=== PATIENT | female | born 1935 | race Caucasian/White ===

== ENCOUNTER → 2016-12-21 | Outpatient (CLI) | payer MEDICARE, BC, OTHER ==
[~2016-12-21] MED LIST: /ATOR40TA PO; /VERA12TA PO; ADV250INH INH; ALBU83IN HHN; ASPI81CH3 PO; COLA100C3 PO; FISHOIL PO; GABA300C2 PO; HUMA100I SC; INSULANT SC; IRON18TA2 PO; IRON65TA PO; LEVO500T PO; LISI5TAB PO; MEGA RED PO; MULTCAP PO; ONETAB35 PO; PERCOCET PO; PROA1AER IN; TRAM50TA2 PO; VITAMIN D PO; [UNRECOGNIZED DRUG - OTHER] PO
[2016-12-21 14:11] LABS: ALBUMIN 3.8 GM/DL (3.2-5.2); ALBUMIN/GLOBULIN RATIO 1.12 (1.00-1.93); ALKALINE PHOSPHATASE 110 U/L (45-117); ALT/SGPT 29 U/L (12-78); ANION GAP 6 MEQ/L (8-16); AST/SGOT 23 U/L (15-37); BILIRUBIN,TOTAL 0.5 MG/DL (0.2-1.0); BLOOD UREA NITROGEN 13 MG/DL (7-18); CALCIUM LEVEL 9.7 MG/DL (8.8-10.2); CARBON DIOXIDE LEVEL 31 MEQ/L (21-32); CHLORIDE LEVEL 103 MEQ/L (98-107); CHOLESTEROL LEVEL 147 MG/DL (<200); CREATININE FOR GFR 0.73 MG/DL (0.55-1.02); GLOMERULAR FILTRATION RATE > 60.0 (>32); GLUCOSE, FASTING 92 MG/DL (83-110); POTASSIUM SERUM 4.1 MEQ/L (3.5-5.1); SODIUM LEVEL 140 MEQ/L (136-145); TOTAL PROTEIN 7.2 GM/DL (6.4-8.2); TRIGLYCERIDES LEVEL 69 MG/DL (<150)
== END ==
LOC: M WUC 09:40
PROVIDERS: ATTEND Internal Medicine
DX: E78.5 Hyperlipidemia, unspecified (principal); J44.9 Chronic obstructive pulmonary disease, unspecified; I10 Essential (primary) hypertension; E11.9 Type 2 diabetes mellitus without complications

== ENCOUNTER 2018-03-01 17:18 | Observation (INO) | payer MEDICARE, BC, OTHER ==
[2018-03-01 19:12] LABS: BASO % 0.2 % (0.0-1.0); HEMOGLOBIN 12.4 g/dl (12.0-15.5); IMMATURE GRANULOCYTE % 0.4 % (0-3.0); LYMPH # 1.3 10^3/uL (1.5-4.5); LYMPH % 12.8 % (24.0-44.0); MEAN CORPUSCULAR HEMOGLOBIN 31.6 pg (27.0-33.0); MEAN CORPUSCULAR HGB CONC 33.5 g/dl (32.0-36.5); MEAN CORPUSCULAR VOLUME 94.1 fl (80.0-96.0); MONO # 1.1 10^3/uL (0.0-0.8); MONO % 10.5 % (0.0-5.0); NEUTROPHILS # 7.8 10^3/uL (1.8-7.7); NEUTROPHILS % 76.1 % (36.0-66.0); PLATELET COUNT, AUTOMATED 130 10^3/uL (150-450); RED BLOOD COUNT 3.93 10^6/uL (4.00-5.40); RED CELL DISTRIBUTION WIDTH 13.2 % (11.5-14.5); WHITE BLOOD COUNT 10.2 10^3/uL (4.0-10.0)
[2018-03-01 19:23] LABS: PROTHROMBIN TIME 16.4 SECONDS (12.1-14.4)
[2018-03-01 19:42] LABS: ALBUMIN 2.8 GM/DL (3.2-5.2); ALBUMIN/GLOBULIN RATIO 0.62 (1.00-1.93); ALKALINE PHOSPHATASE 91 U/L (45-117); ALT/SGPT 16 U/L (12-78); ANION GAP 10 MEQ/L (8-16); AST/SGOT 14 U/L (7-37); BILIRUBIN,DIRECT 0.2 MG/DL (0.0-0.2); BLOOD UREA NITROGEN 26 MG/DL (7-18); CALCIUM LEVEL 9.1 MG/DL (8.8-10.2); CARBON DIOXIDE LEVEL 28 MEQ/L (21-32); CHLORIDE LEVEL 95 MEQ/L (98-107); CPK CREATINE PHOSPHOKINASE 111 U/L (26-192); CREATININE FOR GFR 0.87 MG/DL (0.55-1.30); GLOMERULAR FILTRATION RATE > 60.0 (>32); GLUCOSE, FASTING 184 MG/DL (70-100); POTASSIUM SERUM 3.7 MEQ/L (3.5-5.1); SODIUM LEVEL 133 MEQ/L (136-145); TOTAL PROTEIN 7.3 GM/DL (6.4-8.2); TROPONIN I 0.16 NG/ML (< 0.10)
[2018-03-01 19:47] LABS: NT-PRO BNP 5936 PG/ML (<450)
[2018-03-01 19:55] LABS: LACTIC ACID SEPSIS PROTOCOL 1.6 MMOL/L (0.4-2.0)
[2018-03-01] MEDS: LevoFLOXacin IV 500 MG in APPROPRIATE DILUENT 1 EA IV (20:14)
[2018-03-01] MEDS: HumaLOG INSULIN (NovoLOG) PER UNIT SC ×2 (21:00)
[2018-03-01 21:04] LABS: CALCIUM OXALATE CRYSTALS RFX SMALL; KETONE, URINE AUTO RFX TRACE mg/dL (NEGATIVE); LEUKOCYTE ESTERASE UR AUTO RFX 2+ (NEGATIVE); MUCUS, URINE RFX SMALL (NEGATIVE); NITRITE, URINE AUTO RFX NEGATIVE (NEGATIVE); RBC, URINE AUTO RFX 9 /HPF (0-3); SPECIFIC GRAVITY UR AUTO RFX 1.013 (1.002-1.035); SQUAM EPITHELIAL CELL UR AURFX 1 /HPF (0-6); WBC, URINE AUTO RFX 38 /HPF (0-3)
[2018-03-01] MEDS: IPRATROPIUM 0.5MG/ALBUTEROL 2.5MG INH SOL UD 3ML (DUONEB)(J7620) NEB ×2 (21:35)
[2018-03-01] MEDS ORDERED: ONDANSETRON 4 MG TAB (S0181) PO ×2 (22:15)
[2018-03-01] MEDS ORDERED: ACETAMINOPHEN TAB 650MG DOSE (2X325MG) PO ×2 (22:15)
[2018-03-01] MEDS ORDERED: IPRATROPIUM 0.5MG/ALBUTEROL 2.5MG INH SOL UD 3ML (DUONEB)(J7620) NEB ×2 (22:30)
[2018-03-01] MEDS ORDERED: GLUCOSE 4 GM CHEW TABLET PO ×2 (22:30)
[2018-03-01] MEDS ORDERED: GLUCAGON FOR INJ 1 MG VIAL (J1610) SC ×2 (22:30)
[2018-03-01] MEDS ORDERED: DEXTROSE 50% 50 ML SYRINGE IV ×2 (22:30)
[2018-03-01] MEDS: GABAPENTIN 300 MG CAP PO ×2 (23:54)
[2018-03-01] MEDS: FERROUS SULFATE 325MG TAB PO ×2 (23:54)
[2018-03-01] MEDS: ATORVASTATIN 20 MG TAB PO ×2 (23:54)
[2018-03-01] MEDS: CARVedilol 3.125 MG TAB PO ×2 (23:55)
[2018-03-02] MEDS: methylPREDNISolone INJ 125 MG/2 ML VIAL (J2930) IV ×4 (00:40→12:08)
[2018-03-02 05:39] LABS: BASO % 0.2 % (0.0-1.0); EOS % 0.1 % (0.0-3.0); HEMATOCRIT 36.2 % (36.0-47.0); HEMOGLOBIN 12.3 g/dl (12.0-15.5); IMMATURE GRANULOCYTE % 0.5 % (0-3.0); LYMPH # 0.5 10^3/uL (1.5-4.5); LYMPH % 6.3 % (24.0-44.0); MEAN CORPUSCULAR HEMOGLOBIN 31.6 pg (27.0-33.0); MEAN CORPUSCULAR VOLUME 93.1 fl (80.0-96.0); MONO # 0.1 10^3/uL (0.0-0.8); MONO % 1.6 % (0.0-5.0); NEUTROPHILS # 7.6 10^3/uL (1.8-7.7); NEUTROPHILS % 91.3 % (36.0-66.0); PLATELET COUNT, AUTOMATED 146 10^3/uL (150-450); RED BLOOD COUNT 3.89 10^6/uL (4.00-5.40); WHITE BLOOD COUNT 8.3 10^3/uL (4.0-10.0)
[2018-03-02 06:10] LABS: ANION GAP 9 MEQ/L (8-16); BLOOD UREA NITROGEN 24 MG/DL (7-18); CARBON DIOXIDE LEVEL 27 MEQ/L (21-32); CHLORIDE LEVEL 97 MEQ/L (98-107); CK-MB VALUE MASS 2.4 NG/ML (<3.6); CPK CREATINE PHOSPHOKINASE 92 U/L (26-192); CREATININE FOR GFR 0.68 MG/DL (0.55-1.30); GLOMERULAR FILTRATION RATE > 60.0 (>32); GLUCOSE, FASTING 194 MG/DL (70-100); MAGNESIUM LEVEL 1.9 MG/DL (1.8-2.4); POTASSIUM SERUM 4.2 MEQ/L (3.5-5.1); SODIUM LEVEL 133 MEQ/L (136-145); TROPONIN I 0.13 NG/ML (< 0.10)
[2018-03-02] MEDS: TIOTROPIUM INHALER/CAPSULE (SPIRIVA) INH ×2 (07:47)
[2018-03-02] MEDS: HumaLOG INSULIN (NovoLOG) PER UNIT SC ×4 (08:33→12:08)
[2018-03-02] MEDS: GABAPENTIN 300 MG CAP PO ×2 (09:05)
[2018-03-02] MEDS: RAMIPRIL 1.25 MG CAP PO ×2 (09:05)
[2018-03-02] MEDS: FUROSEMIDE 40 MG TAB PO ×2 (09:05)
[2018-03-02] MEDS: ASPIRIN 81 MG ENTERIC TAB PO ×2 (09:05)
[2018-03-02] MEDS: MULTIVITAMINS/MINERALS THERAP 1 TAB PO ×2 (09:06)
[2018-03-02] MEDS: traMADol 50 MG TAB PO ×2 (09:06)
[2018-03-02] MEDS: CARVedilol 3.125 MG TAB PO ×2 (09:06)
[2018-03-02 13:26] LABS: CK-MB VALUE MASS 3.1 NG/ML (<3.6); CPK CREATINE PHOSPHOKINASE 89 U/L (26-192); MB/CK RELATIVE INDEX 3.48 (< OR =4); TROPONIN I 0.09 NG/ML (< 0.10)
[2018-03-02] MEDS ORDERED: LevoFLOXacin 500 MG TABLET PO ×2 (18:00)
[2018-03-05 13:54] LABS: BEDSIDE GLUCOSE 245 MG/DL (83-110)
== END 2018-03-02 15:40 | disposition home or self-care (01) ==
LOC: M ED 17:18 → M ED INP 21:38 → M PCU 23:39
PROVIDERS: Hospitalist
DX: J44.0 Chronic obstructive pulmonary disease with (acute) lower respiratory infection (principal); I50.9 Heart failure, unspecified; I25.10 Atherosclerotic heart disease of native coronary artery without angina pectoris; E11.9 Type 2 diabetes mellitus without complications; Z95.2 Presence of prosthetic heart valve; Z79.82 Long term (current) use of aspirin; Z79.4 Long term (current) use of insulin; Z79.52 Long term (current) use of systemic steroids; Z79.51 Long term (current) use of inhaled steroids; Z79.899 Other long term (current) drug therapy
CPT/HCPCS: J2930

== ENCOUNTER → 2018-03-15 | Outpatient (REF) | payer MEDICARE, BC, OTHER | LOC: M LAB REF 13:08 | DX: R19.7 Diarrhea, unspecified (principal) | CPT/HCPCS: 87507 ==

== ENCOUNTER 2018-03-23 12:09 | Day surgery (SDC) | payer MEDICARE, BC, OTHER ==
[2018-03-23] MEDS: NS 1,000 ML IV (12:15)
[2018-03-23 12:36] LABS: BEDSIDE GLUCOSE 99 MG/DL (83-110)
[2018-03-23] MEDS ORDERED: PROPOFOL 200 MG/20 ML VIAL As Ordered ×2 (12:58)
[2018-03-23] MEDS ORDERED: LIDOCAINE 2% INJ 100 MG/5 ML SDV (FOR ANES.) As Ordered (12:58)
== END 2018-03-23 13:53 | disposition home or self-care (01) ==
LOC: M OPP 13:53
DX: R19.7 Diarrhea, unspecified (principal); R63.4 Abnormal weight loss; D12.5 Benign neoplasm of sigmoid colon; K64.0 First degree hemorrhoids; K57.30 Diverticulosis of large intestine without perforation or abscess without bleeding; I25.119 Atherosclerotic heart disease of native coronary artery with unspecified angina pectoris; I25.2 Old myocardial infarction; I11.0 Hypertensive heart disease with heart failure; E78.5 Hyperlipidemia, unspecified; Z95.4 Presence of other heart-valve replacement; E11.9 Type 2 diabetes mellitus without complications; D64.9 Anemia, unspecified; M19.90 Unspecified osteoarthritis, unspecified site; Z89.611 Acquired absence of right leg above knee; J44.9 Chronic obstructive pulmonary disease, unspecified; Z87.442 Personal history of urinary calculi; Z87.01 Personal history of pneumonia (recurrent); Z87.891 Personal history of nicotine dependence; Z88.1 Allergy status to other antibiotic agents; Z79.82 Long term (current) use of aspirin; Z79.899 Other long term (current) drug therapy; Z79.4 Long term (current) use of insulin; Z80.3 Family history of malignant neoplasm of breast
CPT/HCPCS: 45385

== ENCOUNTER → 2019-11-10 | Outpatient (CLI) | payer MEDICARE, BC, OTHER ==
[~2019-11-10] MED LIST changes: -/ATOR40TA PO; +ASPI81TAEC PO; +ATOR40TA75 PO; +CARV3.12 PO; -COLA100C3 PO; +COLA100C5 PO; +FERR1TAB8 PO; +FURO40TA2 PO; +GABA-843 PO; +INSUNSD SC; +KRIL1000 PO; +LANTINJ4 SC; +LEVA1TAB2 PO; +LIPI1TAB2 PO; +PRED10TA2 PO; -PROA1AER IN; +PROAAER10 IN; +PROB1CAP10 PO; +RAMI1CAP21 PO; +SPIR1CAP INH; +VITMTA PO
--- NOTE | 2019-11-11 08:55 | REP ---
REASON FOR EXAM: History of COPD. COMPARISON: Multiple, the latest 03/01/2018, a portable exam. The lung brar are markedly hyperexpanded. The degree of hyperexpansion has increased compared to all priors. There is chronic change seen in the right lower lobe. There is a new abnormal opacity in the right middle lobe. There is a new opacity in the right upper lobe. The heart is not enlarged. Note is again made of previous median sternotomy and an unchanged intracardiac device. There is no significant change in appearance of the osseous structures. IMPRESSION: There is a new right middle lobe and right upper lobe opacity. The right middle lobe opacity has the appearance of right middle lobe atelectasis while the right upper lobe opacity is somewhat more suspicious in appearance. There are other chronic changes as described above. CT examination of the chest is recommended with contrast. Electronically Signed by Yehuda Santos DO 11/11/2019 10:54 A
== END ==
LOC: M WUC 15:33
PROVIDERS: ATTEND Internal Medicine
DX: R91.8 Other nonspecific abnormal finding of lung field (principal); J44.9 Chronic obstructive pulmonary disease, unspecified

== ENCOUNTER → 2019-12-21 | Outpatient (REF) | payer MEDICARE, BC, OTHER | LOC: M LAB REF 17:00 | PROVIDERS: ATTEND Internal Medicine Pulmonary Disease | DX: J44.9 Chronic obstructive pulmonary disease, unspecified (principal) ==

== ENCOUNTER → 2019-12-22 | Outpatient (REF) | payer MEDICARE, BC, OTHER | LOC: M LAB REF 07:00 | PROVIDERS: ATTEND Internal Medicine Pulmonary Disease | DX: J44.9 Chronic obstructive pulmonary disease, unspecified (principal) ==